=== PATIENT | female | born 1985 | race Caucasian/White ===

== ENCOUNTER 2024-01-23 06:37 | Day surgery (SDC) | payer OTHER ==
[~2024-01-23] VITALS: Ht 154.9 cm; Wt 156.8 kg
[~2024-01-23 06:37] MED LIST: LIDOCAINE/PF 2% 5 ML SYRINGE IVP ONE; PROPOFOL 1% 20 ML VIAL IVP ONE; SODIUM CHLORIDE 0.9% 1,000 ML ONE
[2024-01-23] MEDS: SODIUM CHLORIDE 0.9% 1,000 ML IV ONE (07:53)
[2024-01-23 08:11] LABS: GLUCOMETER DEV NAME(LOC) SDS.; GLUCOSE,POINT OF CARE 336 MG/DL (70-110)
[2024-01-23] MEDS ORDERED: SEMA7TAB2 (08:37)
[2024-01-23] MEDS ORDERED: LISI-892 PO (08:37)
[2024-01-23] MEDS ORDERED: EMPA25TA3 PO (08:37)
[2024-01-23] MEDS ORDERED: METF-1211 PO (08:37)
[2024-01-23] MEDS ORDERED: MEDR150V13 IM (08:40)
[2024-01-23] MEDS ORDERED: OXYGEN THERAPY IH SCH (09:30)
== END 2024-01-23 10:50 | disposition home or self-care (01) ==
LOC: SURGERY 06:37
PROVIDERS: ATTEND Specialist
DX: K57.32 Diverticulitis of large intestine without perforation or abscess without bleeding (principal); K63.5 Polyp of colon; K64.8 Other hemorrhoids; E11.9 Type 2 diabetes mellitus without complications; R93.5 Abnormal findings on diagnostic imaging of other abdominal regions, including retroperitoneum; Z79.84 Long term (current) use of oral hypoglycemic drugs; Z98.891 History of uterine scar from previous surgery; Z98.890 Other specified postprocedural states
CPT/HCPCS: 45385; 82962; 84703; 36415; 88305; C1769; J2704; J3490; J7030